=== PATIENT | male | born 1955 | race Caucasian/White ===

== ENCOUNTER 2019-02-24 11:52 | Inpatient (IN) ==
[2019-02-24] MEDS ORDERED: SODIUM CHLORIDE 0.9% 1,000 ML IV STA ×2 (14:21→15:53)
[2019-02-24] MEDS ORDERED: ONDANSETRON 4 MG/2 ML VIAL IV STA (14:32)
[2019-02-24 15:01] LABS: Bilirubin,Total 2.4 MG/DL (0.2-1.0); Calcium 7.4 MG/DL (8.5-10.1); Osmolality,Calculated 275.1 MOS/KG (273-304)
[2019-02-24 15:07] LABS: Basophils # 0.2 10*3/uL (0.0-0.2); Basophils % 0.6 % (0.0-0.8); Eosinophils # 0.1 10*3/uL (0.0-0.87); Eosinophils % 0.2 % (0.00-10.9); Hematocrit 47.5 VOL% (42.0-52.0); Immature Granulocytes % 1.7 %; Immature Granulocytes Absolute 0.52 #; Lymphocytes # 1.5 10*3/uL (1.4-4.0); Lymphocytes % 4.9 % (21.2-54.2); Mean Corpuscular HGB Conc 29.5 GM/DL (32-36); Mean Corpuscular Volume 74.6 FL (87-102); Mean Platelet Volume 11.6 FL (9.6-12.0); Monocytes % 2.4 % (1.7-12.7); NRBC # 0.03 10*3/uL; Neutrophils % 90.2 % (38.7-73.9); Platelet Count 486 T/CUMM (130-400); Red Blood Count 6.37 MC/CUMM (3.8-5.5); Red Cell Distribution Width 19.4 % (9.3-17.3); White Blood Count 30.3 T/CUMM (4-12)
[2019-02-24 15:37] LABS: Band Neutrophils 4 % (0-10); Lymphocytes 4 % (20-55); Metamyelocytes 2 %; Microcytosis 2+; Platelet Estimate Increased; Polychromasia Slight; Segmented Neutrophils 87 % (50-85); Spherocytes 2+; Total Cells Counted 100
[2019-02-24] MEDS ORDERED: ONDANSETRON 4 MG/2 ML VIAL IV PRN (17:23)
[2019-02-24] MEDS: SODIUM CHLORIDE 0.9% 1,000 ML IV SCH (18:45)
[2019-02-24] MEDS: PANTOPRAZOLE 40 MG VIAL IV SCH (18:45)
[2019-02-24] MEDS: ENOXAPARIN 40 MG/0.4 ML SYRINGE SUBCUT SCH (20:57)
[2019-02-24] MEDS: LEVOFLOXACIN INJ 750 MG in PREMIX 1 EACH IV SCH (21:01)
[2019-02-24] MEDS: metroNIDAZOLE INJ 500 MG in PREMIX 1 EACH IV SCH (22:40)
[2019-02-25] MEDS: SODIUM CHLORIDE 0.9% 1,000 ML IV SCH ×3 (01:02→19:01)
[2019-02-25 04:55] LABS: Albumin 3.5 G/DL (3.4-5.0); Bilirubin,Total 1.7 MG/DL (0.2-1.0); Calcium 6.9 MG/DL (8.5-10.1); Osmolality,Calculated 283.3 MOS/KG (273-304); Total Protein 6.2 G/DL (6.4-8.3)
[2019-02-25 05:33] LABS: Basophils # 0.2 10*3/uL (0.0-0.2); Basophils % 0.9 % (0.0-0.8); Eosinophils # 0.2 10*3/uL (0.0-0.87); Eosinophils % 0.6 % (0.00-10.9); Hematocrit 43.8 VOL% (42.0-52.0); Immature Granulocytes % 1.3 %; Lymphocytes # 1.6 10*3/uL (1.4-4.0); Lymphocytes % 6.7 % (21.2-54.2); Mean Corpuscular HGB Conc 29.7 GM/DL (32-36); Mean Platelet Volume 11.4 FL (9.6-12.0); NRBC # 0.02 10*3/uL; Neutrophils % 88.5 % (38.7-73.9); Platelet Count 407 T/CUMM (130-400); Red Blood Count 5.84 MC/CUMM (3.8-5.5); Red Cell Distribution Width 19.5 % (9.3-17.3); White Blood Count 23.6 T/CUMM (4-12)
[2019-02-25 05:50] LABS: Elliptocytes Few; Hypochromasia 1+; Microcytosis 2+; Platelet Estimate Increased; Tear Drop Cells Slight
[2019-02-25] MEDS: metroNIDAZOLE INJ 500 MG in PREMIX 1 EACH IV SCH ×3 (06:21→22:32)
[2019-02-25] MEDS: POTASSIUM CHLORIDE 20 MEQ TABLET PO PRN ×2 (06:21→08:29)
[2019-02-25] MEDS: PANTOPRAZOLE 40 MG VIAL IV SCH (08:29)
[2019-02-25] MEDS ORDERED: CLOPIDOGREL 75 MG TABLET PO SCH (09:00)
[2019-02-25] MEDS ORDERED: ASPIRIN EC 81 MG TABLET PO SCH (09:00)
[2019-02-25] MEDS: SODIUM CHLOR 0.9% KCL 40 MEQ 40 MEQ/1,000 ML BAG IV SCH ×2 (09:44→22:31)
[2019-02-25] MEDS: LOSARTAN 50 MG TABLET PO SCH (10:43)
[2019-02-25] MEDS: DOXAZOSIN 4 MG TABLET PO SCH ×2 (10:43→20:32)
[2019-02-25] MEDS: amLODIPine 5 MG TABLET PO SCH (10:44)
[2019-02-25] MEDS: CHLORTHALIDONE 25 MG TABLET PO SCH (10:44)
[2019-02-25] MEDS: TAMSULOSIN 0.4 MG CAPSULE PO SCH ×2 (10:46→20:32)
[2019-02-25] MEDS: LEVOFLOXACIN INJ 750 MG in PREMIX 1 EACH IV SCH (19:25)
[2019-02-25] MEDS: ENOXAPARIN 40 MG/0.4 ML SYRINGE SUBCUT SCH (20:33)
[2019-02-25] MEDS ORDERED: LEVOFLOXACIN INJ 750 MG in PREMIX 1 EACH IV SCH (21:00)
[2019-02-26 05:27] LABS: Albumin 3.4 G/DL (3.4-5.0); Bilirubin,Total 1.5 MG/DL (0.2-1.0); Calcium 7.4 MG/DL (8.5-10.1); Osmolality,Calculated 288.7 MOS/KG (273-304)
[2019-02-26 05:36] LABS: Basophils # 0.2 10*3/uL (0.0-0.2); Basophils % 1.1 % (0.0-0.8); Eosinophils # 0.3 10*3/uL (0.0-0.87); Eosinophils % 1.8 % (0.00-10.9); Immature Granulocytes % 1.3 %; Immature Granulocytes Absolute 0.23 #; Lymphocytes # 1.3 10*3/uL (1.4-4.0); Lymphocytes % 7.8 % (21.2-54.2); Mean Corpuscular HGB Conc 29.3 GM/DL (32-36); Mean Corpuscular Volume 76.2 FL (87-102); Monocytes % 2.7 % (1.7-12.7); Neutrophils % 85.3 % (38.7-73.9); Platelet Count 403 T/CUMM (130-400); Red Blood Count 5.64 MC/CUMM (3.8-5.5); Red Cell Distribution Width 19.6 % (9.3-17.3); White Blood Count 17.1 T/CUMM (4-12)
[2019-02-26 05:43] LABS: Hemoglobin 12.6 GM/DL (14.0-18.0)
[2019-02-26] MEDS: metroNIDAZOLE INJ 500 MG in PREMIX 1 EACH IV SCH (05:43)
[2019-02-26 06:02] LABS: Elliptocytes Few; Platelet Estimate Normal; Polychromasia Few
[2019-02-26] MEDS: SODIUM CHLORIDE 0.9% 1,000 ML IV SCH (06:55)
[2019-02-26] MEDS: LOSARTAN 50 MG TABLET PO SCH (09:20)
[2019-02-26] MEDS: DOXAZOSIN 4 MG TABLET PO SCH (09:20)
[2019-02-26] MEDS: CHLORTHALIDONE 25 MG TABLET PO SCH (09:21)
[2019-02-26] MEDS: TAMSULOSIN 0.4 MG CAPSULE PO SCH (09:21)
[2019-02-26] MEDS: amLODIPine 5 MG TABLET PO SCH (09:21)
[2019-02-26 10:49] VITALS: BP 160/82
== END 2019-02-26 13:05 | disposition home or self-care (01) | DRG 392 ==
LOC: N.ED 11:52 → N.EDINP 11:52 → N.2W 18:29 → N.4E 02-25 15:48
PROVIDERS: ADMIT Internal Medicine; ATTEND Internal Medicine

== ENCOUNTER 2020-12-21 12:18 | Inpatient (IN) ==
[2020-12-21] MEDS ORDERED: SODIUM CHLORIDE 0.9% 1,000 ML IV STA ×2 (12:37→14:48)
[2020-12-21] MEDS ORDERED: ONDANSETRON 4 MG/2 ML VIAL IV ONE (12:37)
[2020-12-21] MEDS ORDERED: MORPHINE 2 MG/1 ML SYRINGE IV ONE (12:37)
[2020-12-21 14:03] LABS: INR 1.5; PT Patient Result 16.6 SECS (10.5-12.0)
[2020-12-21 14:34] LABS: Basophils # 0.2 10*3/uL (0.0-0.2); Basophils % 0.7 % (0.0-0.8); Eosinophils # 0.1 10*3/uL (0.0-0.87); Eosinophils % 0.3 % (0.00-10.9); Hemoglobin 11.6 GM/DL (14.0-18.0); Immature Granulocytes % 3.5 %; Immature Granulocytes Absolute 0.95 #; Lymphocytes # 0.8 10*3/uL (1.4-4.0); Lymphocytes % 2.8 % (21.2-54.2); Mean Corpuscular HGB Conc 28.3 GM/DL (32-36); Mean Corpuscular Volume 77.4 FL (87-102); Mean Platelet Volume 11.6 FL (9.6-12.0); Monocytes % 3.2 % (1.7-12.7); NRBC # 0.03 10*3/uL; Neutrophils % 89.5 % (38.7-73.9); Platelet Count 524 T/CUMM (130-400); Red Cell Distribution Width 19.9 % (9.3-17.3); White Blood Count 27.3 T/CUMM (4-12)
[2020-12-21] MEDS ORDERED: PIPERACILLIN/TAZOBACTAM 3,375 MG in SODIUM CHLORIDE 0.9% 100 ML IV STA (14:35)
[2020-12-21] MEDS ORDERED: NALOXONE 0.4 MG/ML VIAL IV PRN (14:35)
[2020-12-21] MEDS ORDERED: ONDANSETRON 4 MG/2 ML VIAL IV PRN (14:35)
[2020-12-21 15:17] LABS: Lymphocytes 4 % (20-55); Ovalocytes 1+; Platelet Estimate Increased; Polychromasia Slight; Segmented Neutrophils 90 % (50-85); Total Cells Counted 100
[2020-12-21 15:29] LABS: Albumin 3.3 G/DL (3.4-5.0); Bilirubin,Total 7.9 MG/DL (0.20-1.00); Calcium 8.5 MG/DL (8.5-10.1); Osmolality,Calculated 265.5 MOS/KG (273-304); Potassium 3.5 MMOL/L (3.5-5.1); Total Protein 6.8 G/DL (6.4-8.2)
[2020-12-21] MEDS: SODIUM CHLORIDE 0.9% 1,000 ML IV SCH (17:30)
[2020-12-21 18:14] LABS: Bacteria,Urine Occasional /HPF (Few); Blood, Urine Negative (Negative); Calcium Oxalate Crystals,Urine Occasional /HPF (Few); Glucose,Urine (UA) Negative (Negative); Ketones,Urine Negative (Negative); Mucus,Urine Occasional /LPF (Occasional); Nitrite,Urine Negative (Negative); Protein,Urine 30 MG/DL; RBC,Urine 5 /HPF (0-4); Urine Appearance CLEAR (Clear); Urine Color Amber (Yellow); Urine Specific Gravity 1.051 (1.001-1.035)
[2020-12-21 18:15] LABS: Bilirubin,Urine Moderate mg/dL (Negative)
[2020-12-21] MEDS: MORPHINE 2 MG/1 ML SYRINGE IV PRN (21:13)
[2020-12-21] MEDS: DOCUSATE SODIUM 100 MG CAPSULE PO SCH (21:14)
[2020-12-22] MEDS: SODIUM CHLORIDE 0.9% 1,000 ML IV SCH ×4 (01:02→22:36)
[2020-12-22 07:01] LABS: Basophils # 0.3 10*3/uL (0.0-0.2); Basophils % 1.1 % (0.0-0.8); Eosinophils # 0.1 10*3/uL (0.0-0.87); Eosinophils % 0.4 % (0.00-10.9); Hematocrit 38.5 VOL% (42.0-52.0); Immature Granulocytes % 3.6 %; Lymphocytes # 1.2 10*3/uL (1.4-4.0); Lymphocytes % 4.5 % (21.2-54.2); Mean Corpuscular HGB Conc 29.9 GM/DL (32-36); Mean Corpuscular Volume 76.1 FL (87-102); Mean Platelet Volume 11.1 FL (9.6-12.0); NRBC # 0.02 10*3/uL; Neutrophils % 86.4 % (38.7-73.9); Platelet Count 472 T/CUMM (130-400); Red Blood Count 5.06 MC/CUMM (3.8-5.5); Red Cell Distribution Width 19.3 % (9.3-17.3); White Blood Count 27.7 T/CUMM (4-12)
[2020-12-22 07:02] LABS: Hemoglobin 11.5 GM/DL (14.0-18.0)
[2020-12-22 07:04] LABS: Albumin 3.1 G/DL (3.4-5.0); Bilirubin,Total 4.6 MG/DL (0.20-1.00); Calcium 8.2 MG/DL (8.5-10.1); Osmolality,Calculated 270.1 MOS/KG (273-304); Potassium 2.9 MMOL/L (3.5-5.1); Total Protein 6.4 G/DL (6.4-8.2)
[2020-12-22 07:13] LABS: Lymphocytes 5 % (20-55); Platelet Estimate Adequate; Segmented Neutrophils 92 % (50-85); Total Cells Counted 100
[2020-12-22 07:14] LABS: Hypochromasia Slight; Microcytosis Slight; Ovalocytes Slight
[2020-12-22] MEDS ORDERED: SILDENAFIL 20 MG TABLET PO PRN (07:42)
[2020-12-22] MEDS: amLODIPine 5 MG TABLET PO SCH (09:24)
[2020-12-22] MEDS: CHLORTHALIDONE 25 MG TABLET PO SCH (09:24)
[2020-12-22] MEDS: GABAPENTIN 300 MG CAPSULE PO SCH ×3 (09:24→21:30)
[2020-12-22] MEDS: DOXAZOSIN 4 MG TABLET PO SCH ×2 (09:25→21:30)
[2020-12-22] MEDS: POTASSIUM CHLORIDE RIDER 10 MEQ/100 ML PREMIX IV PRN ×6 (09:26→22:36)
[2020-12-22] MEDS: MORPHINE 2 MG/1 ML SYRINGE IV PRN ×3 (09:41→22:23)
[2020-12-22 09:48] LABS: Hepatitis B Core IgM Quant 0.13 Index; Hepatitis B Surface Ag Quant 0.23 Index; Hepatitis B Surface Ag Result Non-Reactive (NonReactive); Hepatitis C Virus Ab Quant 0.06 Index; Hepatitis C Virus Ab Result Non-Reactive (NonReactive)
[2020-12-22] MEDS: DOCUSATE SODIUM 100 MG CAPSULE PO SCH ×2 (10:38→21:30)
[2020-12-22] MEDS: allopurinoL 300 MG TABLET PO SCH (10:39)
[2020-12-22] MEDS: TAMSULOSIN 0.4 MG CAPSULE PO SCH ×2 (10:39→21:30)
[2020-12-22] MEDS: PANTOPRAZOLE 40 MG TABLET PO SCH (10:39)
[2020-12-22] MEDS ORDERED: MORPHINE 2 MG/1 ML SYRINGE IV PRN (12:55)
[2020-12-22] MEDS ORDERED: GENTAMICIN INJ 80 MG/50 ML PREMIX IV SCH (14:30)
[2020-12-23] MEDS: SODIUM CHLORIDE 0.9% 1,000 ML IV SCH ×3 (06:22→23:23)
[2020-12-23 07:14] LABS: INR 1.1; PT Patient Result 11.9 SECS (10.5-12.0)
[2020-12-23] MEDS ORDERED: INDOMETHACIN SUPP 50 MG SUPP RECTAL ONE (08:00)
[2020-12-23] MEDS ORDERED: LACTATED RINGERS 1,000 ML IV SCH (08:00)
[2020-12-23 09:36] LABS: Albumin 2.8 G/DL (3.4-5.0); Basophils # 0.3 10*3/uL (0.0-0.2); Basophils % 1.3 % (0.0-0.8); Bilirubin,Total 3.6 MG/DL (0.20-1.00); Calcium 8.2 MG/DL (8.5-10.1); Eosinophils # 0.3 10*3/uL (0.0-0.87); Eosinophils % 1.3 % (0.00-10.9); Immature Granulocytes % 2.9 %; Immature Granulocytes Absolute 0.75 #; Lymphocytes # 1.4 10*3/uL (1.4-4.0); Lymphocytes % 5.6 % (21.2-54.2); Mean Corpuscular HGB Conc 28.2 GM/DL (32-36); Mean Corpuscular Volume 78.2 FL (87-102); Mean Platelet Volume 11.2 FL (9.6-12.0); Monocytes % 3.9 % (1.7-12.7); Platelet Count 502 T/CUMM (130-400); Potassium 3.7 MMOL/L (3.5-5.1); Red Blood Count 4.99 MC/CUMM (3.8-5.5); Red Cell Distribution Width 19.3 % (9.3-17.3); Total Protein 6.2 G/DL (6.4-8.2); White Blood Count 25.5 T/CUMM (4-12)
[2020-12-23 09:38] LABS: Eosinophils 1 % (0-10); Hypochromasia 1+; Lymphocytes 5 % (20-55); Microcytosis Slight; Platelet Estimate Increased; Segmented Neutrophils 92 % (50-85); Total Cells Counted 100
[2020-12-23 09:39] LABS: Osmolality,Calculated 268.2 MOS/KG (273-304)
[2020-12-23] MEDS ORDERED: fentaNYL 100 MCG/2 ML VIAL ONE (10:28)
[2020-12-23] MEDS ORDERED: SUCCINYLCHOLINE 200 MG/10 ML VIAL ONE (10:28)
[2020-12-23] MEDS ORDERED: LIDOCAINE 2% 5 ML VIAL ONE (10:28)
[2020-12-23] MEDS ORDERED: ONDANSETRON 4 MG/2 ML VIAL ONE (10:28)
[2020-12-23] MEDS ORDERED: ROCURONIUM 50 MG/5 ML VIAL IV ONE (10:28)
[2020-12-23] MEDS ORDERED: propofoL 200 MG/20 ML VIAL IV ONE (10:28)
[2020-12-23] MEDS ORDERED: SEVOFLURANE 1 UNIT/15 MINUTE INH ONE (10:29)
[2020-12-23] MEDS ORDERED: PHENYLEPHRINE 1 MG/10 ML SYRINGE IV ONE ×2 (10:29→11:44)
[2020-12-23] MEDS: GABAPENTIN 300 MG CAPSULE PO SCH ×3 (10:40→21:06)
[2020-12-23] MEDS: DOCUSATE SODIUM 100 MG CAPSULE PO SCH ×2 (10:40→21:06)
[2020-12-23] MEDS: CHLORTHALIDONE 25 MG TABLET PO SCH (10:40)
[2020-12-23] MEDS: DOXAZOSIN 4 MG TABLET PO SCH ×2 (10:40→21:06)
[2020-12-23] MEDS: TAMSULOSIN 0.4 MG CAPSULE PO SCH ×2 (10:40→21:07)
[2020-12-23] MEDS: amLODIPine 5 MG TABLET PO SCH (10:41)
[2020-12-23] MEDS: allopurinoL 300 MG TABLET PO SCH (10:41)
[2020-12-23] MEDS: PANTOPRAZOLE 40 MG TABLET PO SCH (10:41)
[2020-12-23] MEDS: MORPHINE 2 MG/1 ML SYRINGE IV PRN ×2 (21:07→23:24)
[2020-12-24 05:51] LABS: Albumin 2.7 G/DL (3.4-5.0); Basophils # 0.2 10*3/uL (0.0-0.2); Basophils % 1.2 % (0.0-0.8); Bilirubin,Total 3.1 MG/DL (0.20-1.00); Calcium 7.8 MG/DL (8.5-10.1); Eosinophils # 0.4 10*3/uL (0.0-0.87); Eosinophils % 1.8 % (0.00-10.9); Hematocrit 37.6 VOL% (42.0-52.0); Immature Granulocytes % 2.4 %; Immature Granulocytes Absolute 0.47 #; Lymphocytes # 1.4 10*3/uL (1.4-4.0); Lymphocytes % 7.3 % (21.2-54.2); Mean Corpuscular HGB Conc 27.9 GM/DL (32-36); Mean Platelet Volume 11.8 FL (9.6-12.0); Neutrophils % 83.3 % (38.7-73.9); Osmolality,Calculated 273.7 MOS/KG (273-304); Platelet Count 510 T/CUMM (130-400); Potassium 3.3 MMOL/L (3.5-5.1); Red Blood Count 4.76 MC/CUMM (3.8-5.5); Red Cell Distribution Width 19.6 % (9.3-17.3); Total Protein 5.8 G/DL (6.4-8.2); White Blood Count 19.7 T/CUMM (4-12)
[2020-12-24 05:54] LABS: Hemoglobin 10.5 GM/DL (14.0-18.0)
[2020-12-24] MEDS ORDERED: INDOCYANINE GREEN 25 MG VIAL IV ONE (06:00)
[2020-12-24] MEDS: DOXAZOSIN 4 MG TABLET PO SCH ×2 (09:13→20:23)
[2020-12-24] MEDS: amLODIPine 5 MG TABLET PO SCH (09:13)
[2020-12-24] MEDS: CHLORTHALIDONE 25 MG TABLET PO SCH (09:13)
[2020-12-24] MEDS: PIPERACILLIN/TAZOBACTAM 3,375 MG in SODIUM CHLORIDE 0.9% 100 ML IV SCH ×3 (09:21→23:29)
[2020-12-24] MEDS: POTASSIUM CHLORIDE RIDER 10 MEQ/100 ML PREMIX IV PRN ×3 (09:23→18:22)
[2020-12-24] MEDS: TAMSULOSIN 0.4 MG CAPSULE PO SCH ×2 (10:45→20:23)
[2020-12-24] MEDS: DOCUSATE SODIUM 100 MG CAPSULE PO SCH ×2 (10:45→20:23)
[2020-12-24] MEDS: allopurinoL 300 MG TABLET PO SCH (10:46)
[2020-12-24] MEDS: PANTOPRAZOLE 40 MG TABLET PO SCH (10:46)
[2020-12-24] MEDS: GABAPENTIN 300 MG CAPSULE PO SCH ×3 (10:46→20:23)
[2020-12-24] MEDS ORDERED: MIDAZOLAM 2 MG/2 ML VIAL ONE (11:20)
[2020-12-24] MEDS ORDERED: SEVOFLURANE 1 UNIT/15 MINUTE INH ONE ×8 (11:20→13:48)
[2020-12-24] MEDS ORDERED: fentaNYL 100 MCG/2 ML VIAL ONE ×2 (11:20→12:16)
[2020-12-24] MEDS ORDERED: propofoL 200 MG/20 ML VIAL IV ONE (11:21)
[2020-12-24] MEDS ORDERED: LIDOCAINE 2% 5 ML VIAL ONE (11:21)
[2020-12-24] MEDS ORDERED: ROCURONIUM 50 MG/5 ML VIAL IV ONE (11:21)
[2020-12-24] MEDS ORDERED: BUPIVACAINE MPF 0.25% 30 ML VIAL ONE (11:22)
[2020-12-24] MEDS ORDERED: TISSUE ADHESIVE 1 EACH APPLICATOR TOP ONE (11:22)
[2020-12-24] MEDS ORDERED: LIDOCAINE 1%/EPI INJ 20 ML VIAL ONE (11:23)
[2020-12-24] MEDS ORDERED: PHENYLEPHRINE 1 MG/10 ML SYRINGE IV ONE (12:33)
[2020-12-24] MEDS ORDERED: DEXAMETHASONE 4 MG/1 ML VIAL ONE ×2 (13:37)
[2020-12-24] MEDS ORDERED: ONDANSETRON 4 MG/2 ML VIAL ONE (13:37)
[2020-12-24] MEDS ORDERED: LACTATED RINGERS 1,000 ML IV ONE (13:38)
[2020-12-24] MEDS ORDERED: GLYCOPYRROLATE 0.4 MG/2 ML VIAL ONE (13:40)
[2020-12-24] MEDS ORDERED: NEOSTIGMINE 10 MG/10 ML VIAL ONE (13:40)
[2020-12-24] MEDS ORDERED: BISACODYL 5 MG TABLET PO PRN (14:03)
[2020-12-24] MEDS ORDERED: ONDANSETRON 4 MG/2 ML VIAL IV PRN ×2 (14:03→14:12)
[2020-12-24] MEDS ORDERED: HYDROmorphone 2 MG/1 ML VIAL IV PRN ×2 (14:03→14:12)
[2020-12-24] MEDS ORDERED: ALBUTEROL/IPRATROPIUM 3 ML NEB RESP TX PRN (14:03)
[2020-12-24] MEDS ORDERED: KETOROLAC 15 MG/1 ML VIAL IV PRN (14:03)
[2020-12-24] MEDS ORDERED: ACETAMINOPHEN INJ 1,000 MG/100 ML VIAL IV ONE ×2 (14:37)
[2020-12-24] MEDS: SODIUM CHLORIDE 0.9% 1,000 ML IV SCH ×2 (16:32→23:49)
[2020-12-24] MEDS: HYDROmorphone 2 MG/1 ML VIAL IV PRN ×2 (20:33→23:34)
[2020-12-25] MEDS: SODIUM CHLORIDE 0.9% 1,000 ML IV SCH ×3 (00:20→20:57)
[2020-12-25] MEDS: POTASSIUM CHLORIDE RIDER 10 MEQ/100 ML PREMIX IV PRN ×3 (00:26→09:18)
[2020-12-25 06:34] LABS: Albumin 2.8 G/DL (3.4-5.0); Bilirubin,Total 2.2 MG/DL (0.20-1.00); Calcium 8.2 MG/DL (8.5-10.1); Potassium 3.7 MMOL/L (3.5-5.1); Total Protein 6.3 G/DL (6.4-8.2)
[2020-12-25 07:19] LABS: Basophils # 0.3 10*3/uL (0.0-0.2); Basophils % 0.9 % (0.0-0.8); Eosinophils # 0.1 10*3/uL (0.0-0.87); Eosinophils % 0.4 % (0.00-10.9); Hematocrit 41.7 VOL% (42.0-52.0); Hemoglobin 11.6 GM/DL (14.0-18.0); Immature Granulocytes % 3.3 %; Immature Granulocytes Absolute 0.91 #; Lymphocytes # 1.6 10*3/uL (1.4-4.0); Lymphocytes % 5.7 % (21.2-54.2); Mean Corpuscular HGB Conc 27.8 GM/DL (32-36); Mean Corpuscular Volume 79.9 FL (87-102); Mean Platelet Volume 11.2 FL (9.6-12.0); Monocytes % 2.5 % (1.7-12.7); Neutrophils % 87.2 % (38.7-73.9); Platelet Count 591 T/CUMM (130-400); Red Blood Count 5.22 MC/CUMM (3.8-5.5); Red Cell Distribution Width 19.4 % (9.3-17.3); White Blood Count 27.8 T/CUMM (4-12)
[2020-12-25 07:30] LABS: Band Neutrophils 1 % (0-10); Eosinophils 1 % (0-10); Hypochromasia 1+; Lymphocytes 1 % (20-55); Segmented Neutrophils 95 % (50-85); Total Cells Counted 100
[2020-12-25 07:31] LABS: Microcytosis 1+; Ovalocytes Few; Platelet Estimate Increased; Tear Drop Cells Slight
[2020-12-25] MEDS: CHLORTHALIDONE 25 MG TABLET PO SCH (09:18)
[2020-12-25] MEDS: PANTOPRAZOLE 40 MG TABLET PO SCH (09:18)
[2020-12-25] MEDS: TAMSULOSIN 0.4 MG CAPSULE PO SCH ×2 (09:18→20:57)
[2020-12-25] MEDS: DOCUSATE SODIUM 100 MG CAPSULE PO SCH ×2 (09:18→20:57)
[2020-12-25] MEDS: GABAPENTIN 300 MG CAPSULE PO SCH (09:18)
[2020-12-25] MEDS: allopurinoL 300 MG TABLET PO SCH (09:18)
[2020-12-25] MEDS: amLODIPine 5 MG TABLET PO SCH (09:18)
[2020-12-25] MEDS: DOXAZOSIN 4 MG TABLET PO SCH ×2 (09:18→20:58)
[2020-12-25] MEDS: PIPERACILLIN/TAZOBACTAM 3,375 MG in SODIUM CHLORIDE 0.9% 100 ML IV SCH ×3 (09:19→23:03)
[2020-12-25] MEDS ORDERED: traZODone 50 MG TABLET PO PRN ×2 (14:04→14:06)
[2020-12-25] MEDS: GABAPENTIN 400 MG CAPSULE PO SCH ×2 (15:31→20:57)
[2020-12-25] MEDS: KETOROLAC 15 MG/1 ML VIAL IV SCH ×2 (15:33→20:57)
[2020-12-26] MEDS: KETOROLAC 15 MG/1 ML VIAL IV SCH ×4 (03:03→20:21)
[2020-12-26] MEDS: ACETAMINOPHEN 325 MG TABLET PO PRN ×2 (04:04→20:22)
[2020-12-26] MEDS: SODIUM CHLORIDE 0.9% 1,000 ML IV SCH ×3 (04:20→17:50)
[2020-12-26 05:55] LABS: Albumin 2.6 G/DL (3.4-5.0); Calcium 7.6 MG/DL (8.5-10.1); Potassium 3.5 MMOL/L (3.5-5.1); Total Protein 5.8 G/DL (6.4-8.2)
[2020-12-26 06:25] LABS: Basophils # 0.3 10*3/uL (0.0-0.2); Eosinophils # 0.2 10*3/uL (0.0-0.87); Eosinophils % 0.9 % (0.00-10.9); Hematocrit 36.9 VOL% (42.0-52.0); Immature Granulocytes % 2.9 %; Immature Granulocytes Absolute 0.76 #; Lymphocytes # 1.6 10*3/uL (1.4-4.0); Lymphocytes % 6.3 % (21.2-54.2); Mean Corpuscular HGB Conc 28.5 GM/DL (32-36); Mean Corpuscular Volume 78.3 FL (87-102); Mean Platelet Volume 11.2 FL (9.6-12.0); Monocytes % 3.7 % (1.7-12.7); Neutrophils % 85.2 % (38.7-73.9); Platelet Count 505 T/CUMM (130-400); Red Blood Count 4.71 MC/CUMM (3.8-5.5); Red Cell Distribution Width 18.9 % (9.3-17.3); White Blood Count 25.8 T/CUMM (4-12)
[2020-12-26 06:27] LABS: Hemoglobin 10.5 GM/DL (14.0-18.0)
[2020-12-26 06:38] LABS: Band Neutrophils 1 % (0-10); Eosinophils 2 % (0-10); Hypochromasia Slight; Lymphocytes 5 % (20-55); Microcytosis Slight; Platelet Estimate Increased; Segmented Neutrophils 88 % (50-85)
[2020-12-26 06:39] LABS: Ovalocytes Slight; Total Cells Counted 100
[2020-12-26] MEDS: PIPERACILLIN/TAZOBACTAM 3,375 MG in SODIUM CHLORIDE 0.9% 100 ML IV SCH ×3 (08:58→23:43)
[2020-12-26] MEDS: TAMSULOSIN 0.4 MG CAPSULE PO SCH ×2 (09:00→20:29)
[2020-12-26] MEDS: GABAPENTIN 400 MG CAPSULE PO SCH ×3 (09:00→20:22)
[2020-12-26] MEDS: DOCUSATE SODIUM 100 MG CAPSULE PO SCH ×2 (09:00→20:21)
[2020-12-26] MEDS: PANTOPRAZOLE 40 MG TABLET PO SCH (09:00)
[2020-12-26] MEDS: amLODIPine 5 MG TABLET PO SCH (09:00)
[2020-12-26] MEDS: allopurinoL 300 MG TABLET PO SCH (09:00)
[2020-12-26] MEDS: DOXAZOSIN 4 MG TABLET PO SCH ×2 (09:00→20:22)
[2020-12-26] MEDS: CHLORTHALIDONE 25 MG TABLET PO SCH (09:00)
[2020-12-26] MEDS ORDERED: traZODone 50 MG TABLET PO SCH (21:00)
[2020-12-27] MEDS: KETOROLAC 15 MG/1 ML VIAL IV SCH ×2 (01:58→07:48)
[2020-12-27] MEDS: SODIUM CHLORIDE 0.9% 1,000 ML IV SCH ×2 (03:22→10:02)
[2020-12-27 06:08] LABS: Albumin 2.4 G/DL (3.4-5.0); Bilirubin,Total 1.6 MG/DL (0.20-1.00); Potassium 3.1 MMOL/L (3.5-5.1); Total Protein 5.8 G/DL (6.4-8.2)
[2020-12-27] MEDS: POTASSIUM CHLORIDE RIDER 10 MEQ/100 ML PREMIX IV PRN ×4 (06:21→10:00)
[2020-12-27 06:25] LABS: Albumin 2.5 G/DL (3.4-5.0); Bilirubin,Direct 0.74 MG/DL (0.0-0.20); Bilirubin,Indirect 0.7 MG/DL (0.0-1.0); Bilirubin,Total 1.4 MG/DL (0.20-1.00); Total Protein 5.9 G/DL (6.4-8.2)
[2020-12-27 06:33] LABS: Basophils # 0.3 10*3/uL (0.0-0.2); Basophils % 1.1 % (0.0-0.8); Eosinophils # 0.3 10*3/uL (0.0-0.87); Eosinophils % 1.1 % (0.00-10.9); Hematocrit 37.4 VOL% (42.0-52.0); Hemoglobin 10.6 GM/DL (14.0-18.0); Immature Granulocytes % 2.8 %; Immature Granulocytes Absolute 0.65 #; Lymphocytes # 1.7 10*3/uL (1.4-4.0); Lymphocytes % 7.2 % (21.2-54.2); Mean Corpuscular HGB Conc 28.3 GM/DL (32-36); Mean Corpuscular Volume 79.2 FL (87-102); Mean Platelet Volume 11.4 FL (9.6-12.0); Monocytes % 3.6 % (1.7-12.7); NRBC # 0.02 10*3/uL; Neutrophils % 84.2 % (38.7-73.9); Platelet Count 533 T/CUMM (130-400); Red Blood Count 4.72 MC/CUMM (3.8-5.5); Red Cell Distribution Width 18.9 % (9.3-17.3); White Blood Count 23.3 T/CUMM (4-12)
[2020-12-27 06:38] LABS: Eosinophils 1 % (0-10); Hypochromasia 1+; Lymphocytes 9 % (20-55); Microcytosis 1+; Ovalocytes Slight; Platelet Estimate Adequate; Segmented Neutrophils 88 % (50-85); Total Cells Counted 100
[2020-12-27] MEDS: PIPERACILLIN/TAZOBACTAM 3,375 MG in SODIUM CHLORIDE 0.9% 100 ML IV SCH (07:48)
[2020-12-27] MEDS: PANTOPRAZOLE 40 MG TABLET PO SCH (08:34)
[2020-12-27] MEDS: CHLORTHALIDONE 25 MG TABLET PO SCH (08:34)
[2020-12-27] MEDS: TAMSULOSIN 0.4 MG CAPSULE PO SCH (08:34)
[2020-12-27] MEDS: allopurinoL 300 MG TABLET PO SCH (08:34)
[2020-12-27] MEDS: amLODIPine 5 MG TABLET PO SCH (08:34)
[2020-12-27] MEDS: DOXAZOSIN 4 MG TABLET PO SCH (08:34)
[2020-12-27] MEDS: DOCUSATE SODIUM 100 MG CAPSULE PO SCH (08:34)
[2020-12-27] MEDS: GABAPENTIN 400 MG CAPSULE PO SCH (08:34)
[2020-12-27] MEDS ORDERED: POTASSIUM CHLORIDE 20 MEQ TABLET PO ONE (09:45)
[2020-12-27 11:01] VITALS: BP 154/63
== END 2020-12-27 11:15 | disposition home or self-care (01) | DRG 418 ==
LOC: N.ED 12:18 → N.3E 14:35
PROVIDERS: ADMIT Family Medicine; ATTEND Family Medicine
PROC: ERCPWSP (ICD-10-PCS; 2020-12-23 12:05)